=== PATIENT | female | born 1965 | race Caucasian/White ===

== ENCOUNTER 2017-03-02 08:57 | Emergency (ER) | payer OTHER ==
[2017-03-02 09:19] VITALS: BP 126/67
--- NOTE | 2017-03-02 09:37 | UC ---
Ear Complaint HPI - HPI Summary HPI Summary: Pt c/o right ear pain. Pt had bilateral ear tubes placed in december 2016. Pt was given amoxicillin 875 mg PO Q12h 10 days ago and ciprodex ear drops for similar c/o of left ear. Pt states that left ear has improved but now right ear in painful, and draining purulent drainage. - History of Current Complaint Chief Complaint: UCEar Stated Complaint: EAR COMPLAINT Time Seen by Provider: 03/02/17 09:31 Hx Obtained From: Patient Hx Last Menstrual Period: 02/12/17 ?: No Onset/Duration: Gradual Onset, Lasting Days, Still Present Severity Initially: Mild Severity Currently: Moderate Associated Signs/Symptoms: Positive: URI Symptoms - Allergies/Home Medications Allergies/Adverse Reactions: Allergies Allergy/AdvReac Type Severity Reaction Status Date / Time Sulfa Drugs Allergy Severe Hives/Diff. Verified 03/02/17 09:18 Breathing/I tching Home Medications: Home Medications Amoxicillin PO (*) [Amoxicillin 875 MG (*)] 875 mg PO BID 03/02/17 [History Confirmed 03/02/17] Ciproflox/Dexameth OTIC.SUSP* [Ciprodex OTIC.SUSP*] 5 drop .SEE ORDER BID [History Confirmed 03/02/17] Loratadine [Claritin 10 MG CAP] 10 mg PO DAILY 03/02/17 [History Confirmed 03/02] PMH/Surg Hx/FS Hx/Imm Hx Previously Healthy: Yes - Surgical History Surgical History: Yes Surgery Procedure, Year, and Place: ear tubes 12/24 - Family History Known Family History: Positive: Cardiac Disease - Social History Occupation: Employed Full-time Lives: With Family Alcohol Use: None Substance Use Type: None Smoking Status (MU): Never Smoked Tobacco Have You Smoked in the Last Year: No - Immunization History Hx Tetanus, Diphtheria Vaccination: Yes - december 2014 Review of Systems Constitutional: Negative Skin: Negative Eyes: Negative ENT: Ear Ache, Other - ear drainage Respiratory: Cough Cardiovascular: Negative Gastrointestinal: Negative Genitourinary: Negative Motor: Negative Neurovascular: Negative Musculoskeletal: Negative Neurological: Headache Psychological: Negative Is Patient Immunocompromised?: No All Other Systems Reviewed And Are Negative: Yes Physical Exam Triage Information Reviewed: Yes Appearance: Ill-Appearing Vital Signs: Initial Vital Signs Temp 98.3 F 03/02/17 09:13 Pulse 72 03/02/17 09:13 Resp 16 03/02/17 09:13 BP 126/67 03/02/17 09:13 Pulse Ox 98 03/02/17 09:13 Vital Signs Reviewed: Yes Eye Exam: Normal ENT Exam: Other ENT: Positive: Nasal congestion, Other - bilateral ear tubes visualized, right ear tube, with pururlent drainage, small amount, Dental Exam: Normal Neck exam: Normal Respiratory Exam: Normal Cardiovascular Exam: Normal Musculoskeletal Exam: Normal Neurological Exam: Normal Psychological Exam: Normal Skin Exam: Normal Ear Complaint Course/Dx - Differential Dx/Diagnosis Differential Diagnosis/HQI/PQRI: Otitis Externa, Otitis Media, URI Provider Diagnoses: serous otitis media right ear. uri Discharge - Discharge Plan Condition: Stable Disposition: HOME Prescriptions: Pseudoephedrine TAB* [Sudafed TAB*] 60 mg PO BID #10 tab Patient Education Materials: Serous Otitis Media (ED) Referrals: Gasper Burns MD [Primary Care Provider] - 2 Days Additional Instructions: Please follow up with your ENT provider, Dr. Burns as soon as possible. Begin using the already prescribed ciprodex drops in your right ear as directed on the prescription. If symptoms do not improve, please follow up with your PCP, ENT provider or return to clinic as needed.
== END 2017-03-02 09:51 | disposition home or self-care (01) ==
LOC: UCCORT 08:57
DX: H65.91 Unspecified nonsuppurative otitis media, right ear (principal); R06.9 Unspecified abnormalities of breathing
CPT/HCPCS: 99212; G0463

== ENCOUNTER 2017-08-09 10:13 | Emergency (ER) | payer BC ==
[2017-08-09 10:43] VITALS: BP 139/82
--- NOTE | 2017-08-09 11:25 | UC ---
Respiratory Complaint HPI - HPI Summary HPI Summary: Pt presents reporting ongoing cough with brown sputum and progressive wheezing. Pt has been using her albuterol inhaler every 3 hours with short term improvement. Pt also with PND and sore throat. no fever, chills + fatigue. Pt reports recently completed 7 days course of amox for URI - sx are worse however. No n/v/d. No Pt does factory work, + chemical odors. Pt is diabetic with metformin and asthma. No admissions or intubation. Pt's medicationis reviewed this visit - History of Current Complaint Chief Complaint: UCRespiratory Stated Complaint: COUGH,WHEEZING Time Seen by Provider: 08/09/17 11:16 Hx Obtained From: Patient Hx Last Menstrual Period: 07/30/17 Onset/Duration: Gradual Onset Timing: Constant Pain Intensity: 0 Associated Signs And Symptoms: Positive: Wheezing, Nasal Congestion - Allergies/Home Medications Allergies/Adverse Reactions: Allergies Allergy/AdvReac Type Severity Reaction Status Date / Time Sulfa (Sulfonamide Allergy Hives/Diff. Verified 08/09/17 10:45 Antibiotics) Breathing/I tching Home Medications: Home Medications Albuterol HFA INHALER* [Ventolin HFA Inhaler*] 2 puff INH Q3H PRN 08/09/17 [ History Confirmed 08/09/17] D-Methorphan/PE/Acetaminophen [Mucinex Fast-Max Congest-Head] 1 each PO [History] Guaifen/Dextromethorphan/PE [Mucinex Fast-Max Severe C] 1 liq PO Q4H PRN [History Confirmed 08/09/17] metFORMIN* [Glucophage 500 MG TAB *] 500 mg PO QPM 08/09/17 [History Confirmed 08/09/17] PMH/Surg Hx/FS Hx/Imm Hx Previously Healthy: Yes - Surgical History Surgical History: Yes Surgery Procedure, Year, and Place: ear tubes 12/24, then removed 03/2017 - Family History Known Family History: Positive: None, Cardiac Disease - Social History Occupation: Employed Full-time Lives: With Family Alcohol Use: Occasionally Substance Use Type: None Smoking Status (MU): Never Smoked Tobacco Have You Smoked in the Last Year: No - Immunization History Hx Tetanus, Diphtheria Vaccination: Yes - december 2014 Review of Systems Constitutional: Negative Respiratory: Cough All Other Systems Reviewed And Are Negative: Yes Physical Exam Triage Information Reviewed: Yes Appearance: Well-Appearing, No Pain Distress, Well-Nourished Vital Signs: Initial Vital Signs Temp 97.6 F 08/09/17 10:33 Pulse 82 08/09/17 10:33 Resp 18 08/09/17 10:33 BP 139/82 08/09/17 10:33 Pulse Ox 98 08/09/17 10:33 Vital Signs Reviewed: Yes Eye Exam: Normal Eyes: Positive: Conjunctiva Clear ENT Exam: Normal ENT: Positive: Normal ENT inspection, Pharynx normal, Nasal congestion, TMs normal Neck exam: Normal Neck: Positive: Supple, Nontender Respiratory: Positive: Chest non-tender, No accessory muscle use, Wheezing Cardiovascular Exam: Normal Cardiovascular: Positive: RRR, No Murmur Bowel Sounds: Positive: Present Musculoskeletal Exam: Normal Musculoskeletal: Positive: Strength Intact Neurological Exam: Normal Neurological: Positive: Alert Psychological Exam: Normal Skin Exam: Normal UC Diagnostic Evaluation - Laboratory O2 Sat by Pulse Oximetry: 98 - Radiology Xray Interpretation: No Acute Changes Radiology Interpretation Completed By: Radiologist Re-Evaluation - Re-Evaluation First Eval Comment: Pt wheezing resolved. no accessory muscle use. sho rx abx, diflucan prn. pt to take probiotic, yogurt - discussed at length. mdi. pred. pt comfortable and in agreement with plan Respiratory Course/Dx - Course Course Of Treatment: Pt with progressive cough with brown sputum, fatigue and congestion. pt with h.o asthma - using MDI with mild improveemnt. recent abx for head congestion. Will give duoneb. cxr. reassess - Differential Dx/Diagnosis Provider Diagnoses: bronchitis Discharge - Sign-Out/Discharge Documenting (check all that apply): Discharge/Admit/Transfer - Discharge Plan Condition: Stable Disposition: HOME Prescriptions: Azithromycin TAB* [Zithromax TAB (Z-CATINA) 250 mg #6 tabs] 2 tab PO .TODAY, THEN 1 DAILY #1 catina Fluconazole [Diflucan 150 MG (NF)] 150 mg PO ONCE PRN #1 tab PRN Reason: vaginal yeast infection predniSONE TAB* [Deltasone 20 MG TAB*] 40 mg PO DAILY 10 Days #5 tab Patient Education Materials: Asthma (ED), Acute Bronchitis (ED) Referrals: Richard Morales MD [Primary Care Provider] - Additional Instructions: - Take antibiotics exactly as prescribed until gone -Use your albuterol puffer - 2 puffs ever 3 hours with a spacer for the next 2 days - then every 3 hours as needed - take prednisone daily as prescribed - this will caused increase in your blood sugar for 3-4 days. -These infections are spread by oral secretions. Do not share eating or drinking utensils. Frequent hand washing is important. Clean items that may get your secretions on them such as cell phones, ipads, computer mouse, television remotes. Once you have been on antbiotics for 2 days, change your pillowcase and your toothbrush -Stay well hydrated - avoid excess caffeine and all alcohol - eat regular, healthy meals -work to avoid cigarette smoke exposure -Contact your doctor to arrange a follow-up appointment this week. Call your doctor, return here or go to the emergency department with any questions or concerns - Billing Disposition and Condition Condition: STABLE Disposition: HOME
[2017-08-09] MEDS ORDERED: Albuterol/Ipratropium NEB.SOL* Albuterol 2.5 MG/Ipratropium 0.5 MG 3 ML INH ONE (11:30)
--- NOTE | 2017-08-09 11:47 | RAD ---
INDICATION: Cough, brown sputum, wheezing. History of asthma. COMPARISON: No relevant prior exams available on the [facility] for comparison. TECHNIQUE: Dual energy PA and routine lateral views of the chest were obtained. REPORT: Elevated lung volumes. No focal pulmonary lesion, compelling alveolar consolidation, pleural effusion, pneumothorax. The heart, pulmonary vasculature, and mediastinal contours are unremarkable. Mild thoracic degenerative spondylosis. IMPRESSION: Stigmata of obstructive lung disease. No acute pulmonary or cardiac process evident.
== END 2017-08-09 12:09 | disposition home or self-care (01) ==
LOC: UCCORT 10:13
DX: J40 Bronchitis, not specified as acute or chronic (principal); R09.81 Nasal congestion; Z88.2 Allergy status to sulfonamides
CPT/HCPCS: 71046; 99212; A9270-GY; G0463

== ENCOUNTER 2018-05-13 09:27 | Emergency (ER) | payer BC ==
[2018-05-13 11:05] VITALS: BP 123/70
--- NOTE | 2018-05-13 11:24 | UC ---
Throat Pain/Nasal Watson HPI - HPI Summary HPI Summary: Pt c/o gradual onset of nasal congestion, sinus pressure, pain, cough, chest congestion , fever, body aches X "several days". - History of Current Complaint Chief Complaint: UCRespiratory Stated Complaint: ST,CONGESTION Time Seen by Provider: 05/13/18 10:52 Hx Obtained From: Patient Hx Last Menstrual Period: 04/21/18 ?: No Onset/Duration: Gradual Onset, Lasting Days, Still Present Severity: Moderate Pain Intensity: 7 Cough: Nonproductive Associated Signs & Symptoms: Positive: Sinus Discomfort, Fever - subjective - Epiglottits Risk Factors Epiglottis Risk Factors: Negative - Allergies/Home Medications Allergies/Adverse Reactions: Allergies Allergy/AdvReac Type Severity Reaction Status Date / Time Sulfa (Sulfonamide Allergy Hives/Diff. Verified 05/13/18 10:53 Antibiotics) Breathing/I tching Home Medications: Home Medications Dm/PE/Acetaminophen/Chlorphenr [Kalina-Dickey Plus Flu Tab Eff] 2 tab PO Q4H PRN 05/13/18 [History Confirmed 05/13/18] Pravastatin Sodium 10 mg PO QAM 05/13/18 [History Confirmed 05/13/18] Umeclidin/Vilant 62.5 MDI(NF) [ANORO 62.5/25 Ellipta DEVICE (NF)] 1 inh INH DAILY 05/13/18 [History Confirmed 05/13/18] PMH/Surg Hx/FS Hx/Imm Hx Previously Healthy: Yes - Surgical History Surgical History: Yes Surgery Procedure, Year, and Place: ear tubes 12/24, then removed 03/2017 - Family History Known Family History: Positive: Cardiac Disease - Social History Occupation: Employed Full-time Lives: With Family Alcohol Use: Occasionally Substance Use Type: None Smoking Status (MU): Never Smoked Tobacco Have You Smoked in the Last Year: No - Immunization History Hx Tetanus, Diphtheria Vaccination: Yes - december 2014 Review of Systems All Other Systems Reviewed And Are Negative: Yes Constitutional: Positive: Fever - subjective, Chills, Fatigue Skin: Positive: Negative Eyes: Positive: Negative ENT: Positive: Ear Ache, Nasal Discharge, Sinus Congestion, Sinus Pain/ Tenderness Respiratory: Positive: Cough Cardiovascular: Positive: Negative Gastrointestinal: Positive: Negative Genitourinary: Positive: Negative Motor: Positive: Negative Neurovascular: Positive: Negative Musculoskeletal: Positive: Negative Neurological: Positive: Headache Psychological: Positive: Negative Is Patient Immunocompromised?: No Physical Exam Triage Information Reviewed: Yes Appearance: Ill-Appearing Vital Signs: Initial Vital Signs Temp 97.8 F 05/13/18 10:58 Pulse 97 05/13/18 10:58 Resp 20 05/13/18 10:58 BP 123/70 05/13/18 10:58 Pulse Ox 99 05/13/18 10:58 Vital Signs Reviewed: Yes Eye Exam: Normal ENT: Positive: Nasal congestion, Sinus tenderness Dental Exam: Normal Neck exam: Normal Respiratory Exam: Normal Cardiovascular Exam: Normal Musculoskeletal Exam: Normal Neurological Exam: Normal Psychological Exam: Normal Skin Exam: Normal Throat Pain/Nasal Course/Dx - Differential Dx/Diagnosis Differential Diagnosis/HQI/PQRI: Influenza, Sinusitis, URI Provider Diagnosis: Sinusitis Discharge - Sign-Out/Discharge Documenting (check all that apply): Patient Departure All imaging exams completed and their final reports reviewed: No Studies - Discharge Plan Condition: Stable Disposition: HOME Prescriptions: Amoxicillin PO (*) [Amoxicillin 875 MG (*)] 875 mg PO Q12H #20 tab Fluconazole 150 MG TAB* [Diflucan 150 MG TAB*] 150 mg PO ONCE #2 tablet Patient Education Materials: Sinusitis (ED) Forms: *Work Release Referrals: Richard Morales MD [Primary Care Provider] - If Needed - Billing Disposition and Condition Condition: STABLE Disposition: Home
== END 2018-05-13 11:31 | disposition home or self-care (01) ==
LOC: UCCORT 09:27
DX: J32.9 Chronic sinusitis, unspecified (principal); Z88.2 Allergy status to sulfonamides
CPT/HCPCS: 99212; G0463

== ENCOUNTER 2019-02-16 10:07 | Emergency (ER) | payer BC ==
[2019-02-16 10:31] VITALS: BP 150/92
--- NOTE | 2019-02-16 13:19 | UC ---
Knee Pain HPI - HPI Summary HPI Summary: left knee pain x 1 week no known injury , pain is at lateral left knee 6 out of10 , worse with walking, better with rest and ice, denies any swelling, felt a pop yesterday at work as she moved - History of Current Complaint Chief Complaint: UCLowerExtremity Stated Complaint: L KNEE PAIN Time Seen by Provider: 02/16/19 10:34 Hx Obtained From: Patient Hx Last Menstrual Period: 01/30/19 ?: No Onset/Duration: Gradual Onset, Lasting Weeks - 1, Still Present, Worse Since - yesterday Severity Initially: Moderate Severity Currently: Moderate Pain Intensity: 7 Pain Scale Used: 0-10 Numeric Character: Aching, Stiffness Aggravating Factor(s): Movement, Weight Bearing Alleviating Factor(s): Rest, Cold Associated Signs And Symptoms: Negative: Swelling, Redness, Bruising, Fever, Weakness, Numbness, Tingling Able to Bear Weight: Yes - Allergies/Home Medications Allergies/Adverse Reactions: Allergies Allergy/AdvReac Type Severity Reaction Status Date / Time Sulfa (Sulfonamide Allergy Hives/Diff. Verified 02/16/19 10:20 Antibiotics) Breathing/I tching Home Medications: Home Medications Albuterol 2.5MG/3ML (0.083%)* [Ventolin 2.5 MG/3 ML NEB.ELEN*] 2.5 mg INH Q4H PRN 02/16/19 [History Confirmed 02/16/19] Cyclobenzaprine TAB* [Flexeril 10 MG TAB*] 10 mg PO PRN 02/16/19 [History] Ibuprofen TAB* [Advil TAB*] 800 mg PO Q6H PRN 02/16/19 [History Confirmed ] PMH/Surg Hx/FS Hx/Imm Hx Previously Healthy: Yes - Surgical History Surgical History: Yes Surgery Procedure, Year, and Place: ear tubes 12/24, then removed 03/2017 - Family History Known Family History: Positive: None, Cardiac Disease - Social History Alcohol Use: Occasionally Substance Use Type: None Smoking Status (MU): Never Smoked Tobacco Have You Smoked in the Last Year: No - Immunization History Hx Tetanus, Diphtheria Vaccination: Yes - december 2014 Review of Systems All Other Systems Reviewed And Are Negative: Yes Is Patient Immunocompromised?: No Physical Exam Vital Signs: Initial Vital Signs Temp 97 F 02/16/19 10:25 Pulse 84 02/16/19 10:25 Resp 17 02/16/19 10:25 BP 150/92 02/16/19 10:25 Pulse Ox 97 02/16/19 10:25 Diagnostics - Radiology No standard instances Radiology Interpretation Completed By: Radiologist Summary of Radiographic Findings: xray right knee: IMPRESSION: 1. SMALL JOINT EFFUSION. 2. NO FRACTURE IDENTIFIED. Knee Pain Course/Dx - Differential Dx/Diagnosis Provider Diagnosis: Left knee pain Discharge ED - Sign-Out/Discharge Documenting (check all that apply): Patient Departure All imaging exams completed and their final reports reviewed: Yes - Discharge Plan Condition: Stable Disposition: HOME Prescriptions: Ibuprofen TAB* [Motrin TAB* 800 MG] 800 mg PO Q8H PRN #20 tab PRN Reason: Pain - Moderate Patient Education Materials: Knee Pain (ED) Forms: *Work Release Referrals: Richard Morales MD [Primary Care Provider] - 7 Days Additional Instructions: normal left knee xray cont. with rest, ice, Ibuprofen as needed for pain follow up with your pcp in one week if not better - Billing Disposition and Condition Condition: STABLE Disposition: Home
== END 2019-02-16 11:02 | disposition home or self-care (01) ==
LOC: UCCORT 10:07
DX: M25.562 Pain in left knee (principal); M25.462 Effusion, left knee; Z88.2 Allergy status to sulfonamides
CPT/HCPCS: 99212; G0463